=== PATIENT | female | born 1995 | race Caucasian/White ===

== ENCOUNTER 2019-08-09 23:44 | Emergency (ER) | payer MEDICAID ==
[~2019-08-09] VITALS: Ht 162.6 cm; Wt 50.3 kg
[2019-08-09 23:51] VITALS: BP 125/80; Ht 162.6 cm; Wt 50.3 kg
== END 2019-08-10 00:43 | disposition home or self-care (01) ==
LOC: ED 23:44
DX: L30.9 Dermatitis, unspecified (principal); R42 Dizziness and giddiness; R51 Headache